=== PATIENT | male | born 1965 | race Caucasian/White ===

== ENCOUNTER 2021-09-23 11:24 | Inpatient (IN) ==
[2021-09-23] MEDS ORDERED: Magnesium Sulfate 2 gm BAG 2 GM/50 ML BAG IVPB ONE (11:33)
[2021-09-23] MEDS ORDERED: Magnesium Sulfate 2 gm BAG 2 GM/50 ML BAG ONE (11:34)
[2021-09-23] MEDS ORDERED: Furosemide 20 mg/2 ml IV VIAL IV SLOW PU ONE (11:40)
[2021-09-23] MEDS ORDERED: Nitro 2% OINT (Nitroglycerin) 1 INCH/PAK TOPICAL ONE (11:40)
[2021-09-23] MEDS ORDERED: Albuterol 2.5mg/3 ml (0.083%) NEB.SOLN INH ONE ×4 (11:45→12:58)
[2021-09-23 11:49] LABS: PO2 Arterial 226 mmHg (80-100)
[2021-09-23 11:52] LABS: PCO2 Arterial 117 mmHg (35-45)
[2021-09-23] MEDS ORDERED: Succinylcholine 200 mg VIAL 20 mg/ml 10 ml VIAL (200 mg) ONE (12:05)
[2021-09-23] MEDS ORDERED: Etomidate 40 mg/20 ml (2 MG/ML) 20 ml VIAL (40 mg) ONE (12:05)
[2021-09-23] MEDS ORDERED: Rocuronium 50 mg VIAL 10 mg/ml 5 ml VIAL (50 mg) ONE (12:05)
[2021-09-23 12:09] LABS: Urine Appearance Cloudy; Urine Bilirubin Negative (Negative); Urine Blood 2+ (Negative); Urine Color Yellow; Urine Glucose Negative (Negative); Urine Ketones Trace (Negative); Urine Nitrite Negative (Negative); Urine Protein 1+(30 mg/dL) (Negative); Urine Specific Gravity 1.016 (1.002-1.030); Urine Urobilinogen Negative (Negative)
[2021-09-23 12:12] LABS: Urine Bacteria Absent (Absent); Urine Red Blood Cell 2+(6-10/hpf) (Absent); Urine White Blood Cell Trace(0-5/hpf) (Absent)
[2021-09-23 12:12] LABS: ABS Lymphocytes 0.4 10^3/ul (1.0-4.8); ABS Monocytes 0.5 10^3/ul (0-0.8); ABS Neutrophils 6.3 10^3/ul (1.5-7.7); Eosinophil % 0.1 %; Hematocrit 39 % (42-52); Hemoglobin 13.1 g/dL (14.0-18.0); Mean Corpuscular HGB Conc 33 g/dL (31-36); Mean Corpuscular Hemoglobin 31 pg (27-31); Mean Corpuscular Volume 93 fL (80-94); Mean Platelet Volume 6.5 fL (7.4-10.4); Nucleated Red Blood Cells % 0.1; Platelet Count 504 10^3/uL (150-450); Red Blood Count 4.23 10^6 /uL (4.18-5.48); Red Cell Distribution Width 14 % (10-15); White Blood Count 7.2 10^3/uL (3.5-10.8)
[2021-09-23] MEDS ORDERED: Norepinephrine 16MCG/ML BAGD5W 4,000 MCG/250 ML BAG IV ONE (12:26)
[2021-09-23] MEDS ORDERED: Albuterol/Ipratropium NEB.SOL (2.5/0.5 MG) 3 ML NEB.SOLN ONE (12:30)
[2021-09-23] MEDS: Norepinephrine 16MCG/ML BAGD5W 4,000 MCG/250 ML BAG IV SCH ×2 (12:30→19:55)
[2021-09-23] MEDS ORDERED: methylPREDNISolone 125 mg 2 ML VIAL ONE (12:31)
[2021-09-23 12:37] LABS: Albumin 4.3 g/dL (3.2-5.2); Albumin/Globulin Ratio 1.7 (1-3); Calcium 9.5 mg/dL (8.6-10.3); Globulin 2.6 g/dL (2-4); Magnesium 2.1 mg/dL (1.9-2.7); Potassium 4.9 mmol/L (3.5-5.0); Total Bilirubin 0.3 mg/dL (0.2-1.0); Total Protein 6.9 g/dL (6.4-8.9); eGFR CKD-EPI 118.3 (>60)
[2021-09-23] MEDS ORDERED: Propofol 10 mg/ml 100 ML BTL 100 ML ONE (12:41)
[2021-09-23] MEDS: Propofol 10 mg/ml 100 ML BTL 100 ML IV SCH ×2 (12:54→21:19)
[2021-09-23] MEDS ORDERED: Midazolam 2 mg/2 ml VIAL 1 mg/ml 2 ml VIAL (2 mg) IV SLOW PU ONE ×2 (12:57)
[2021-09-23] MEDS ORDERED: Propofol 10 mg/ml 100 ML BTL 100 ML IV ONE (12:58)
[2021-09-23] MEDS ORDERED: cefTRIAXone 1 gm/50 mL D5W 1 GM/50 ML BAG IV SCH (13:15)
[2021-09-23] MEDS ORDERED: Cisatracurium 100 MG in NS 0.9% 250 ml 200 ML IV SCH (13:15)
[2021-09-23] MEDS ORDERED: Iohexol 350 (CONTRAST) 500 ML MDV IV ONE (13:26)
[2021-09-23] MEDS ORDERED: methylPREDNISolone 125 mg 2 ML VIAL IV ONE (13:49)
[2021-09-23] MEDS ORDERED: NS 0.9% 1000 ml BAG 1,000 ML IV ONE (13:49)
[2021-09-23] MEDS ORDERED: Albuterol/Ipratropium NEB.SOL (2.5/0.5 MG) 3 ML NEB.SOLN INH SCH (14:00)
[2021-09-23] MEDS ORDERED: methylPREDNISolone SOD 40 mg/ml 1 ml VIAL IV SCH (14:00)
[2021-09-23 15:02] LABS: High Sensitivity Troponin 1 Hr 38 pg/mL (<20)
[2021-09-23] MEDS: Azithromycin 500 mg/250 ml NS 500 MG/250 ML BAG IVPB SCH (15:13)
[2021-09-23] MEDS: Chlorhexidine MOUTHWASH 0.12% 15 ML UDC SWISH SPIT SCH ×3 (15:38→21:16)
[2021-09-23] MEDS: Pantoprazole VIAL 40 MG VIAL IV SCH (15:38)
[2021-09-23 15:50] LABS: PO2 Arterial 130 mmHg (80-100)
[2021-09-23 15:55] LABS: PCO2 Arterial 88 mmHg (35-45)
[2021-09-23] MEDS: methylPREDNISolone SOD 40 mg/ml 1 ml VIAL IV SCH (17:48)
[2021-09-23 18:06] LABS: PO2 Arterial 93 mmHg (80-100)
[2021-09-23 18:12] LABS: PCO2 Arterial 82 mmHg (35-45)
[2021-09-23] MEDS: Albuterol/Ipratropium NEB.SOL (2.5/0.5 MG) 3 ML NEB.SOLN INH SCH (18:31)
[2021-09-23] MEDS: Heparin 5000 UNITS/ML 1 mL VIAL SUBCUT SCH (21:15)
[2021-09-23] MEDS: fentaNYL 100 mcg/2 ml 50 MCG/ML VIAL IV SLOW PU PRN (22:04)
[2021-09-23] MEDS ORDERED: Acetaminophen IV 1 GM/100ML 100 ML IV PRN (22:19)
[2021-09-24] MEDS: Albuterol/Ipratropium NEB.SOL (2.5/0.5 MG) 3 ML NEB.SOLN INH SCH ×2 (00:17→07:27)
[2021-09-24] MEDS: methylPREDNISolone SOD 40 mg/ml 1 ml VIAL IV SCH ×3 (01:06→20:30)
[2021-09-24] MEDS: Chlorhexidine MOUTHWASH 0.12% 15 ML UDC SWISH SPIT SCH ×6 (02:02→20:30)
[2021-09-24] MEDS: Propofol 10 mg/ml 100 ML BTL 100 ML IV SCH ×3 (04:15→21:06)
[2021-09-24] MEDS: Norepinephrine 16MCG/ML BAGD5W 4,000 MCG/250 ML BAG IV SCH (04:15)
[2021-09-24 04:42] LABS: ABS Lymphocytes 0.3 10^3/ul (1.0-4.8); ABS Monocytes 0.5 10^3/ul (0-0.8); ABS Neutrophils 8.9 10^3/ul (1.5-7.7); Hematocrit 37 % (42-52); Hemoglobin 12.3 g/dL (14.0-18.0); Lymphocyte % 3.1 %; Mean Corpuscular HGB Conc 33 g/dL (31-36); Mean Corpuscular Hemoglobin 30 pg (27-31); Mean Corpuscular Volume 92 fL (80-94); Mean Platelet Volume 6.6 fL (7.4-10.4); Platelet Count 464 10^3/uL (150-450); Red Blood Count 4.06 10^6 /uL (4.18-5.48); Red Cell Distribution Width 14 % (10-15); White Blood Count 9.6 10^3/uL (3.5-10.8)
[2021-09-24] MEDS ORDERED: cefTRIAXone 1 gm/50 mL D5W 1 GM/50 ML BAG IV SCH (05:00)
[2021-09-24 05:02] LABS: Calcium 9.3 mg/dL (8.6-10.3); Potassium 4.6 mmol/L (3.5-5.0); eGFR CKD-EPI 122.8 (>60)
[2021-09-24] MEDS ORDERED: Lactated Ringers 500 ml BAG 500 ML IV ONE (07:46)
[2021-09-24] MEDS ORDERED: PHENYLEPHRINE DRIP IVPREMIX 50 MG/250 ML BAG IV SCH (08:00)
[2021-09-24] MEDS ORDERED: Vasopressin 100 UNITS in D5W 250 ml BAG 245 ML IV SCH (08:00)
[2021-09-24] MEDS: Heparin 5000 UNITS/ML 1 mL VIAL SUBCUT SCH ×2 (08:12→20:30)
[2021-09-24] MEDS ORDERED: Norepinephrine 16MCG/ML BAGD5W 4,000 MCG/250 ML BAG IV SCH (10:00)
[2021-09-24 11:20] LABS: PCO2 Arterial 70 mmHg (35-45); PO2 Arterial 83 mmHg (80-100)
[2021-09-24 11:34] LABS: Phosphorus 4.3 mg/dL (2.5-5.0)
[2021-09-24] MEDS: cefTRIAXone 1 gm/50 mL D5W 1 GM/50 ML BAG IV SCH (13:19)
[2021-09-24] MEDS: Azithromycin 500 mg/250 ml NS 500 MG/250 ML BAG IVPB SCH (14:33)
[2021-09-24] MEDS: Pantoprazole VIAL 40 MG VIAL IV SCH (14:33)
[2021-09-25] MEDS: Chlorhexidine MOUTHWASH 0.12% 15 ML UDC SWISH SPIT SCH ×3 (01:03→10:26)
[2021-09-25] MEDS: fentaNYL 100 mcg/2 ml 50 MCG/ML VIAL IV SLOW PU PRN (01:30)
[2021-09-25 03:28] LABS: Hematocrit 33 % (42-52); Mean Corpuscular HGB Conc 33 g/dL (31-36); Mean Corpuscular Hemoglobin 30 pg (27-31); Mean Corpuscular Volume 92 fL (80-94); Mean Platelet Volume 6.4 fL (7.4-10.4); Platelet Count 376 10^3/uL (150-450); Red Blood Count 3.62 10^6 /uL (4.18-5.48); Red Cell Distribution Width 14 % (10-15); White Blood Count 16.9 10^3/uL (3.5-10.8)
[2021-09-25 03:30] LABS: Urine Appearance Turbid; Urine Bilirubin Negative (Negative); Urine Blood 2+ (Negative); Urine Color Yellow; Urine Glucose Negative (Negative); Urine Ketones 1+ (Negative); Urine Nitrite Negative (Negative); Urine Protein 2+(100 mg/dL) (Negative); Urine Specific Gravity 1.028 (1.002-1.030); Urine Urobilinogen Negative (Negative)
[2021-09-25 03:48] LABS: Urine Bacteria Absent (Absent); Urine Red Blood Cell 3+(>10/hpf) (Absent); Urine Squamous Epithelial Cell Present (Absent); Urine White Blood Cell 3+(>20/hpf) (Absent)
[2021-09-25 04:15] LABS: Basophilic Stippling 1+; RBC Morphology Normal (Normal)
[2021-09-25 04:16] LABS: ABS Lymphocytes 0.3 10^3/ul (1.0-4.8); ABS Monocytes 0.9 10^3/ul (0-0.8); ABS Neutrophils 15.7 10^3/ul (1.5-7.7); Eosinophil % 0.1 %; Lymphocyte % 1.5 %
[2021-09-25 04:20] LABS: Calcium 9.3 mg/dL (8.6-10.3); Magnesium 2.3 mg/dL (1.9-2.7); Potassium 4.7 mmol/L (3.5-5.0); eGFR CKD-EPI 124.5 (>60)
[2021-09-25] MEDS: Propofol 10 mg/ml 100 ML BTL 100 ML IV SCH (06:19)
[2021-09-25] MEDS: methylPREDNISolone SOD 40 mg/ml 1 ml VIAL IV SCH (07:52)
[2021-09-25] MEDS: Heparin 5000 UNITS/ML 1 mL VIAL SUBCUT SCH ×2 (07:52→20:13)
[2021-09-25 08:45] LABS: PO2 Arterial 90 mmHg (80-100)
[2021-09-25 08:48] LABS: PCO2 Arterial 78 mmHg (35-45)
[2021-09-25] MEDS: Pantoprazole VIAL 40 MG VIAL IV SCH (12:46)
[2021-09-25] MEDS: cefTRIAXone 1 gm/50 mL D5W 1 GM/50 ML BAG IV SCH (12:46)
[2021-09-25 13:57] LABS: PCO2 Arterial 67 mmHg (35-45); PO2 Arterial 93 mmHg (80-100)
[2021-09-25] MEDS: Azithromycin 500 mg/250 ml NS 500 MG/250 ML BAG IVPB SCH (14:40)
[2021-09-26 04:49] LABS: ABS Lymphocytes 0.8 10^3/ul (1.0-4.8); ABS Monocytes 0.9 10^3/ul (0-0.8); Eosinophil % 0.2 %; Hematocrit 31 % (42-52); Hemoglobin 10.1 g/dL (14.0-18.0); Lymphocyte % 6.9 %; Mean Corpuscular HGB Conc 33 g/dL (31-36); Mean Corpuscular Hemoglobin 30 pg (27-31); Mean Corpuscular Volume 93 fL (80-94); Mean Platelet Volume 6.6 fL (7.4-10.4); Platelet Count 302 10^3/uL (150-450); Red Blood Count 3.33 10^6 /uL (4.18-5.48); Red Cell Distribution Width 14 % (10-15); White Blood Count 11.8 10^3/uL (3.5-10.8)
[2021-09-26 05:13] LABS: Blood Urea Nitrogen 29 mg/dL (6-24); Calcium 8.8 mg/dL (8.6-10.3); Chloride 91 mmol/L (101-111); Glucose 85 mg/dL (70-100); Potassium 4.4 mmol/L (3.5-5.0); Sodium 135 mmol/L (135-145); eGFR CKD-EPI 138.8 (>60)
[2021-09-26 05:35] LABS: Anion Gap 2 mmol/L (2-11); CO2 Carbon Dioxide 42 mmol/L (22-32)
[2021-09-26] MEDS ORDERED: Multivitamins/Minerals TAB PO ONE (09:09)
[2021-09-26] MEDS: Heparin 5000 UNITS/ML 1 mL VIAL SUBCUT SCH ×2 (09:38→20:11)
[2021-09-26] MEDS ORDERED: Azithromycin 500 mg/250 ml NS 500 MG/250 ML BAG IVPB SCH (10:00)
[2021-09-26] MEDS ORDERED: Nicotine Lozenge mini 2 MG LOZNG.MINI MT PRN (12:21)
[2021-09-26] MEDS: cefTRIAXone 1 gm/50 mL D5W 1 GM/50 ML BAG IV SCH (12:29)
[2021-09-26] MEDS: Pantoprazole VIAL 40 MG VIAL IV SCH (16:59)
[2021-09-26] MEDS: Budesonide NEB 0.5 MG/2 ML NEB.SOLN INH SCH (19:21)
[2021-09-27 05:39] LABS: ABS Eosinophils 0.1 10^3/ul (0-0.6); ABS Lymphocytes 0.9 10^3/ul (1.0-4.8); ABS Monocytes 0.9 10^3/ul (0-0.8); ABS Neutrophils 7.6 10^3/ul (1.5-7.7); Eosinophil % 1.1 %; Hematocrit 32 % (42-52); Hemoglobin 10.6 g/dL (14.0-18.0); Lymphocyte % 9.2 %; Mean Corpuscular HGB Conc 34 g/dL (31-36); Mean Corpuscular Hemoglobin 31 pg (27-31); Mean Corpuscular Volume 92 fL (80-94); Mean Platelet Volume 6.4 fL (7.4-10.4); Platelet Count 317 10^3/uL (150-450); Red Blood Count 3.44 10^6 /uL (4.18-5.48); Red Cell Distribution Width 14 % (10-15); White Blood Count 9.5 10^3/uL (3.5-10.8)
[2021-09-27 06:17] LABS: Blood Urea Nitrogen 15 mg/dL (6-24); Calcium 8.7 mg/dL (8.6-10.3); Chloride 89 mmol/L (101-111); Glucose 95 mg/dL (70-100); Potassium 4.7 mmol/L (3.5-5.0); Sodium 133 mmol/L (135-145); eGFR CKD-EPI 128.2 (>60)
[2021-09-27 06:28] LABS: CO2 Carbon Dioxide 45 mmol/L (22-32)
[2021-09-27] MEDS: Heparin 5000 UNITS/ML 1 mL VIAL SUBCUT SCH ×2 (08:05→20:51)
[2021-09-27] MEDS: Budesonide NEB 0.5 MG/2 ML NEB.SOLN INH SCH ×2 (08:31→20:12)
[2021-09-27] MEDS: cefTRIAXone 1 gm/50 mL D5W 1 GM/50 ML BAG IV SCH (15:09)
[2021-09-27] MEDS: Pantoprazole VIAL 40 MG VIAL IV SCH (15:09)
[2021-09-28 06:21] LABS: ABS Eosinophils 0.1 10^3/ul (0-0.6); ABS Lymphocytes 0.6 10^3/ul (1.0-4.8); ABS Monocytes 0.8 10^3/ul (0-0.8); ABS Neutrophils 5.6 10^3/ul (1.5-7.7); Eosinophil % 1.4 %; Hematocrit 34 % (42-52); Hemoglobin 11.2 g/dL (14.0-18.0); Lymphocyte % 9.1 %; Mean Corpuscular HGB Conc 33 g/dL (31-36); Mean Corpuscular Hemoglobin 31 pg (27-31); Mean Corpuscular Volume 93 fL (80-94); Mean Platelet Volume 6.7 fL (7.4-10.4); Platelet Count 331 10^3/uL (150-450); Red Blood Count 3.65 10^6 /uL (4.18-5.48); Red Cell Distribution Width 14 % (10-15); White Blood Count 7.2 10^3/uL (3.5-10.8)
[2021-09-28] MEDS: Budesonide NEB 0.5 MG/2 ML NEB.SOLN INH SCH (07:35)
[2021-09-28 07:56] LABS: Calcium 8.9 mg/dL (8.6-10.3); Potassium 4.9 mmol/L (3.5-5.0)
[2021-09-28 08:01] LABS: eGFR CKD-EPI 132.5 (>60)
[2021-09-28] MEDS: Heparin 5000 UNITS/ML 1 mL VIAL SUBCUT SCH ×2 (08:14→20:17)
[2021-09-28] MEDS: cefTRIAXone 1 gm/50 mL D5W 1 GM/50 ML BAG IV SCH (12:53)
[2021-09-28] MEDS: Pantoprazole VIAL 40 MG VIAL IV SCH (12:53)
[2021-09-28] MEDS ORDERED: Budesonide NEB 0.5 MG/2 ML NEB.SOLN INH PRN (13:49)
[2021-09-29 06:45] LABS: ABS Eosinophils 0.2 10^3/ul (0-0.6); ABS Lymphocytes 0.7 10^3/ul (1.0-4.8); ABS Monocytes 0.7 10^3/ul (0-0.8); ABS Neutrophils 5.3 10^3/ul (1.5-7.7); Eosinophil % 2.7 %; Hematocrit 33 % (42-52); Hemoglobin 10.9 g/dL (14.0-18.0); Lymphocyte % 10.1 %; Mean Corpuscular HGB Conc 33 g/dL (31-36); Mean Corpuscular Hemoglobin 31 pg (27-31); Mean Corpuscular Volume 93 fL (80-94); Mean Platelet Volume 6.8 fL (7.4-10.4); Nucleated Red Blood Cells % 0.1; Platelet Count 358 10^3/uL (150-450); Red Blood Count 3.51 10^6 /uL (4.18-5.48); Red Cell Distribution Width 14 % (10-15); White Blood Count 6.9 10^3/uL (3.5-10.8)
[2021-09-29 07:02] LABS: Blood Urea Nitrogen 12 mg/dL (6-24); Calcium 8.8 mg/dL (8.6-10.3); Chloride 85 mmol/L (101-111); Glucose 92 mg/dL (70-100); Magnesium 1.9 mg/dL (1.9-2.7); Phosphorus 3.2 mg/dL (2.5-5.0); Potassium 4.7 mmol/L (3.5-5.0); Sodium 131 mmol/L (135-145); eGFR CKD-EPI 134.9 (>60)
[2021-09-29] MEDS ORDERED: Magnesium Sulfate 2 gm BAG 2 GM/50 ML BAG IVPB ONE (07:20)
[2021-09-29 08:58] LABS: CO2 Carbon Dioxide 46 mmol/L (22-32)
[2021-09-29] MEDS: Heparin 5000 UNITS/ML 1 mL VIAL SUBCUT SCH ×2 (09:04→20:23)
[2021-09-30 06:13] LABS: Blood Urea Nitrogen 13 mg/dL (6-24); Calcium 8.5 mg/dL (8.6-10.3); Chloride 86 mmol/L (101-111); Glucose 107 mg/dL (70-100); Magnesium 2.1 mg/dL (1.9-2.7); Potassium 4.8 mmol/L (3.5-5.0); Sodium 130 mmol/L (135-145); eGFR CKD-EPI 138.8 (>60)
[2021-09-30 06:28] LABS: ABS Eosinophils 0.1 10^3/ul (0-0.6); ABS Lymphocytes 0.7 10^3/ul (1.0-4.8); ABS Monocytes 0.9 10^3/ul (0-0.8); ABS Neutrophils 7.3 10^3/ul (1.5-7.7); Eosinophil % 1.3 %; Hematocrit 34 % (42-52); Hemoglobin 11.4 g/dL (14.0-18.0); Lymphocyte % 7.4 %; Mean Corpuscular HGB Conc 33 g/dL (31-36); Mean Corpuscular Hemoglobin 31 pg (27-31); Mean Corpuscular Volume 94 fL (80-94); Mean Platelet Volume 6.7 fL (7.4-10.4); Platelet Count 378 10^3/uL (150-450); Red Blood Count 3.66 10^6 /uL (4.18-5.48); Red Cell Distribution Width 14 % (10-15)
[2021-09-30 06:36] LABS: CO2 Carbon Dioxide 44 mmol/L (22-32)
[2021-09-30] MEDS: Heparin 5000 UNITS/ML 1 mL VIAL SUBCUT SCH ×2 (08:49→20:32)
[2021-09-30] MEDS: SPIRIVA Respimat (tiotropium) 2.5 mcg/inh Inhaler INH SCH (09:02)
[2021-10-01 06:09] LABS: ABS Basophils 0.1 10^3/ul (0-0.2); ABS Eosinophils 0.1 10^3/ul (0-0.6); ABS Monocytes 1.1 10^3/ul (0-0.8); ABS Neutrophils 7.6 10^3/ul (1.5-7.7); Eosinophil % 1.3 %; Hematocrit 34 % (42-52); Hemoglobin 11.2 g/dL (14.0-18.0); Lymphocyte % 9.8 %; Mean Corpuscular HGB Conc 33 g/dL (31-36); Mean Corpuscular Hemoglobin 31 pg (27-31); Mean Corpuscular Volume 92 fL (80-94); Mean Platelet Volume 6.5 fL (7.4-10.4); Platelet Count 361 10^3/uL (150-450); Red Blood Count 3.66 10^6 /uL (4.18-5.48); Red Cell Distribution Width 14 % (10-15); White Blood Count 9.8 10^3/uL (3.5-10.8)
[2021-10-01 06:50] LABS: Blood Urea Nitrogen 15 mg/dL (6-24); Calcium 8.8 mg/dL (8.6-10.3); Chloride 83 mmol/L (101-111); Glucose 80 mg/dL (70-100); Sodium 130 mmol/L (135-145); eGFR CKD-EPI 138.8 (>60)
[2021-10-01 07:10] LABS: Potassium 5.3 mmol/L (3.5-5.0)
[2021-10-01 07:13] LABS: Anion Gap 3 mmol/L (2-11); CO2 Carbon Dioxide 44 mmol/L (22-32)
[2021-10-01] MEDS: Heparin 5000 UNITS/ML 1 mL VIAL SUBCUT SCH ×2 (09:19→21:04)
[2021-10-01] MEDS: SPIRIVA Respimat (tiotropium) 2.5 mcg/inh Inhaler INH SCH (09:29)
[2021-10-01] MEDS ORDERED: SODIUM ZIRCONIUM CYCLOSILICATE 10 GM PACKET PO ONE (14:13)
[2021-10-02 06:04] LABS: PCO2 Arterial 79 mmHg (35-45)
[2021-10-02 06:06] LABS: PO2 Arterial 96 mmHg (80-100)
[2021-10-02 06:50] LABS: Calcium 8.4 mg/dL (8.6-10.3); Potassium 4.9 mmol/L (3.5-5.0); eGFR CKD-EPI 138.8 (>60)
[2021-10-02] MEDS: SPIRIVA Respimat (tiotropium) 2.5 mcg/inh Inhaler INH SCH (07:37)
[2021-10-02] MEDS: Heparin 5000 UNITS/ML 1 mL VIAL SUBCUT SCH (09:05)
[2021-10-02 14:18] VITALS: BP 133/61
== END 2021-10-02 14:42 | disposition home or self-care (01) | DRG 208 ==
LOC: ED 11:24 → ICU 12:49 → SUATTDRO 12:49 → ICU 14:05 → MEDTELE 09-26 15:41
PROVIDERS: ADMIT Internal Medicine; ATTEND Internal Medicine

== ENCOUNTER 2023-07-13 18:23 | Inpatient (IN) ==
[2023-07-13] MEDS ORDERED: Rocuronium 50 mg VIAL 10 mg/ml 5 ml VIAL (50 mg) ONE (18:30)
[2023-07-13] MEDS ORDERED: Succinylcholine 200 mg VIAL 20 mg/ml 10 ml VIAL (200 mg) ONE (18:30)
[2023-07-13] MEDS ORDERED: Naloxone 4 mg VIAL 0.4 MG/ML 10 ml VIAL (4 mg) ONE (18:32)
[2023-07-13] MEDS: Naloxone 0.4 mg VIAL 0.4 mg/ml 1 ml VIAL IV PUSH ONE (18:33)
[2023-07-13] MEDS: Etomidate 20 mg/10 ml 2 MG/ML 10 ml VIAL IV ONE (18:41)
[2023-07-13] MEDS: Succinylcholine 200 mg VIAL 20 mg/ml 10 ml VIAL (200 mg) IV ONE (18:42)
[2023-07-13] MEDS ORDERED: Midazolam 5 mg/ml concentrated 5 mg/ml 1 ml VIAL ONE (18:52)
[2023-07-13] MEDS: Midazolam 2 mg/2 ml VIAL 1 mg/ml 2 ml VIAL (2 mg) IV SLOW PU ONE (18:56)
[2023-07-13 19:02] LABS: Hematocrit 33.6 % (38-53); Hemoglobin 10.8 g/dL (13.2-16.3); Mean Corpuscular Hemoglobin 29.9 pg (27-33); Mean Corpuscular Hgb Conc 32.2 g/dL (31-36); Mean Corpuscular Volume 92.8 fL (80-97); Mean Platelet Volume 6.6 fL (7.5-11.2); Platelet Count 527 10^3/uL (150-450); Red Blood Count 3.62 10^6/uL (4.06-5.63); Red Cell Distribution Width 13.8 % (12-17); White Blood Count 9.4 10^3/uL (3.6-10.2)
[2023-07-13] MEDS: Midazolam PREMIXBAG 1 MG/ML NS 100 ML IV SCH (19:04)
[2023-07-13 19:12] LABS: PO2 Arterial 265 mmHg (80-100); Resp Rate 15
[2023-07-13 19:15] LABS: PCO2 Arterial > 100 mmHg (35-45)
[2023-07-13] MEDS: methylPREDNISolone SOD SUCC 125 mg 2 ML VIAL IV ONE (19:22)
[2023-07-13] MEDS ORDERED: Propofol 10 mg/ml 100 ML BTL 1,000 MG/100 ML BTL ONE (19:23)
[2023-07-13 19:26] LABS: High Sens Troponin Baseline 6 pg/mL (<20)
[2023-07-13 19:29] LABS: ALT 8 U/L (7-52); AST 10 U/L (13-39); Albumin 3.8 g/dL (3.2-5.2); Alkaline Phosphatase 130 U/L (35-149); Blood Urea Nitrogen 19 mg/dL (6-24); C Reactive Protein 219.59 mg/L (<8.01); Calcium 9.8 mg/dL (8.6-10.3); Chloride 90 mmol/L (101-111); Creatinine, Serum 0.31 mg/dL (0.67-1.17); Glucose 115 mg/dL (70-100); Potassium 4.4 mmol/L (3.5-5.0); Sodium 142 mmol/L (135-145); Total Bilirubin 0.4 mg/dL (0.2-1.0); eGFR CKD-EPI 135.7 (>60)
[2023-07-13 19:30] LABS: Albumin/Globulin Ratio 1.2 (1-3); Globulin 3.3 g/dL (2-4); Total Protein 7.1 g/dL (6.4-8.9)
[2023-07-13 19:33] LABS: ABS Eosinophils 0.1 10^3/uL (0.0-0.5); ABS Lymphocytes 0.6 10^3/uL (1.0-4.8); ABS Neutrophils 6.7 10^3/uL (1.5-7.6); ABS Nucleated RBC 0.01 10^3/ul; Eosinophil % 0.7 %; Lymphocyte % 6.4 %; Nucleated Red Blood Cells % 0.1 %/100WBC (0.0-0.8)
[2023-07-13 19:47] LABS: Urine Appearance Clear; Urine Bilirubin Negative (Negative); Urine Blood 1+ (Negative); Urine Color Yellow; Urine Glucose Negative (Negative); Urine Ketones 1+ (Negative); Urine Nitrite Negative (Negative); Urine Protein 2+(100 mg/dL) (Negative); Urine Specific Gravity 1.021 (1.002-1.030); Urine Urobilinogen Positive (Negative)
[2023-07-13 19:48] LABS: CO2 Carbon Dioxide > 45 mmol/L (22-32)
[2023-07-13 19:55] LABS: Urine Bacteria Absent (Absent); Urine Red Blood Cell 3+(>10/hpf) (Absent); Urine White Blood Cell Trace(0-5/hpf) (Absent)
[2023-07-13 19:57] LABS: Activated Partial Thrombo Time 38.1 seconds (26.0-38.0); INR 1.14 (0.83-1.13)
[2023-07-13] MEDS ORDERED: Phenylephrine 40 mcg/mL 10mL (400mcg) SYRINGE IV PUSH PRN (20:08)
[2023-07-13] MEDS: Albuterol/Ipratropium NEB.SOL (2.5/0.5 MG) 3 ML NEB.SOLN INH ONE ×3 (20:25→21:37)
[2023-07-13] MEDS: Norepinephrine 4 MG/250mL D5W 4,000 MCG/250 ML BAG IV SCH (20:35)
[2023-07-13] MEDS: Propofol 10 mg/ml 100 ML BTL 1,000 MG/100 ML BTL IV SCH (20:35)
[2023-07-13] MEDS: Rocuronium 50 mg VIAL 10 mg/ml 5 ml VIAL (50 mg) IV ONE (21:28)
[2023-07-13] MEDS: Ketamine HCL 50 mg/ml 10 ml VIAL (500 MG) IV ONE (22:00)
[2023-07-13] MEDS: Ketamine INFUS(restricted) NS 500 MG/500 ML BAG IV SCH (22:05)
[2023-07-13] MEDS: Norepinephrine 4 MG/250mL D5W 4,000 MCG/250 ML BAG IV ONE (22:35)
[2023-07-13] MEDS: cefTRIAXone 1 gm/50 mL D5W 1 GM/50 ML BAG IV ONE (23:16)
[2023-07-13] MEDS: Azithromycin 500 mg/250 ml NS 500 MG/250 ML BAG IVPB ONE (23:16)
[2023-07-13] MEDS: Phenylephrine 40 mcg/mL 10mL (400mcg) SYRINGE ONE (23:25)
[2023-07-13] MEDS: Rocuronium 50 mg VIAL 10 mg/ml 5 ml VIAL (50 mg) ONE (23:27)
[2023-07-13 23:53] LABS: High Sensitivity Troponin 1 Hr 8 pg/mL (<20)
[2023-07-14 00:07] LABS: PCO2 Arterial 53 mmHg (35-45); PO2 Arterial 101 mmHg (80-100)
[2023-07-14] MEDS: Pantoprazole VIAL 40 MG VIAL IV SCH (00:50)
[2023-07-14] MEDS: Enoxaparin 40 MG/0.4 ML SYR SUBCUT SCH (00:51)
[2023-07-14] MEDS: methylPREDNISolone SOD SUCC 125 mg 2 ML VIAL IV SCH (03:31)
[2023-07-14 05:53] LABS: ABS Lymphocytes 0.4 10^3/uL (1.0-4.8); ABS Monocytes 0.7 10^3/uL (0.0-1.1); ABS Neutrophils 6.8 10^3/uL (1.5-7.6); Hemoglobin 10.9 g/dL (13.2-16.3); Lymphocyte % 5.6 %; Mean Corpuscular Hemoglobin 29.6 pg (27-33); Mean Corpuscular Hgb Conc 32.2 g/dL (31-36); Mean Corpuscular Volume 91.9 fL (80-97); Mean Platelet Volume 6.9 fL (7.5-11.2); Nucleated Red Blood Cells % 0.1 %/100WBC (0.0-0.8); Platelet Count 520 10^3/uL (150-450); Red Blood Count 3.69 10^6/uL (4.06-5.63); Red Cell Distribution Width 13.6 % (12-17)
[2023-07-14] MEDS: Albuterol/Ipratropium NEB.SOL (2.5/0.5 MG) 3 ML NEB.SOLN INH SCH ×3 (06:06→11:52)
[2023-07-14 06:08] LABS: Calcium 8.8 mg/dL (8.6-10.3); Creatinine, Serum 0.43 mg/dL (0.67-1.17); Magnesium 1.9 mg/dL (1.9-2.7); Phosphorus 2.8 mg/dL (2.5-5.0)
[2023-07-14] MEDS: Chlorhexidine MOUTHWASH 0.12% 15 ML UDC TOPICAL SCH (06:28)
[2023-07-14] MEDS: Lactated Ringers 1000 ml BAG 1,000 ML IV ONE (06:28)
[2023-07-14] MEDS: Albuterol 2.5mg/3 ml (0.083%) NEB.SOLN INH PRN (07:27)
[2023-07-14] MEDS: Iodixanol (CONTRAST) 320 MG/ML 100 ML SDV IV ONE (07:41)
[2023-07-14 10:10] LABS: Resp Rate 12
[2023-07-14 10:11] LABS: PO2 Arterial 200 mmHg (80-100)
[2023-07-14 10:13] LABS: PCO2 Arterial 72 mmHg (35-45)
[2023-07-14] MEDS ORDERED: Sulfur Hexaflouride MICROSPHR 25 MG VIAL ONE (11:11)
[2023-07-14] MEDS: acetaZOLAMIDE IV 500 MG in NS 0.9% 50 ML 50 ML IVPB SCH (11:34)
[2023-07-14] MEDS: Acetylcysteine INH SOL (RT) 200 MG/ML 4 ML VIAL INH ONE (11:53)
[2023-07-14] MEDS: Lactated Ringers 1000 ml BAG 1,000 ML IV SCH (14:25)
[2023-07-14] MEDS: Albuterol/Ipratropium NEB.SOL (2.5/0.5 MG) 3 ML NEB.SOLN ONE (23:27)
[2023-07-14] MEDS: cefTRIAXone 1 gm/50 mL D5W 1 GM/50 ML BAG IV SCH (23:55)
[2023-07-15] MEDS: Azithromycin 500 mg/250 ml NS 500 MG/250 ML BAG IVPB SCH (00:35)
[2023-07-15] MEDS: fentaNYL 100 mcg/2 ml 50 MCG/ML VIAL IV SLOW PU ONE (01:17)
[2023-07-15] MEDS: fentaNYL INFUSION 50 mcg/mL VL 2,500 MCG/50 ML VIAL IV SCH (01:25)
[2023-07-15 04:49] LABS: ABS Lymphocytes 0.5 10^3/uL (1.0-4.8); ABS Monocytes 0.7 10^3/uL (0.0-1.1); ABS Neutrophils 6.6 10^3/uL (1.5-7.6); ABS Nucleated RBC 0.01 10^3/ul; Hematocrit 27.7 % (38-53); Hemoglobin 9.1 g/dL (13.2-16.3); Lymphocyte % 5.9 %; Mean Corpuscular Hemoglobin 29.7 pg (27-33); Mean Corpuscular Hgb Conc 32.7 g/dL (31-36); Mean Corpuscular Volume 90.7 fL (80-97); Mean Platelet Volume 6.7 fL (7.5-11.2); Nucleated Red Blood Cells % 0.1 %/100WBC (0.0-0.8); Platelet Count 453 10^3/uL (150-450); Red Blood Count 3.05 10^6/uL (4.06-5.63); Red Cell Distribution Width 13.8 % (12-17); White Blood Count 7.8 10^3/uL (3.6-10.2)
[2023-07-15 05:05] LABS: Creatinine, Serum 0.41 mg/dL (0.67-1.17); Potassium 3.4 mmol/L (3.5-5.0)
[2023-07-15 05:06] LABS: Calcium 8.3 mg/dL (8.6-10.3); eGFR CKD-EPI 124.8 (>60)
[2023-07-15] MEDS: Potassium Chloride LIQUID 20 MEQ/15 ML LIQUID PO ONE (08:52)
[2023-07-15 10:21] LABS: PO2 Arterial 129 mmHg (80-100)
[2023-07-15 10:33] LABS: PCO2 Arterial 86 mmHg (35-45)
[2023-07-15] MEDS: Albuterol/Ipratropium NEB.SOL (2.5/0.5 MG) 3 ML NEB.SOLN INH SCH ×3 (11:46→19:50)
[2023-07-15 11:59] LABS: PO2 Arterial 76 mmHg (80-100)
[2023-07-15] MEDS ORDERED: acetaZOLAMIDE IV 250 MG in NS 0.9% 50 ML 50 ML IVPB SCH (12:00)
[2023-07-15 12:05] LABS: PCO2 Arterial 72 mmHg (35-45)
[2023-07-15 16:14] LABS: PCO2 Arterial 66 mmHg (35-45); PO2 Arterial 121 mmHg (80-100)
[2023-07-15] MEDS: methylPREDNISolone SOD SUCC 125 mg 2 ML VIAL IV SCH (21:40)
[2023-07-15] MEDS: Rocuronium 50 mg VIAL 10 mg/ml 5 ml VIAL (50 mg) ONE (22:42)
[2023-07-16 04:38] LABS: ABS Lymphocytes 0.3 10^3/uL (1.0-4.8); ABS Monocytes 0.7 10^3/uL (0.0-1.1); ABS Nucleated RBC 0.01 10^3/ul; Hematocrit 27.9 % (38-53); Hemoglobin 9.3 g/dL (13.2-16.3); Lymphocyte % 3.2 %; Mean Corpuscular Hemoglobin 30.3 pg (27-33); Mean Corpuscular Hgb Conc 33.3 g/dL (31-36); Mean Platelet Volume 6.4 fL (7.5-11.2); Nucleated Red Blood Cells % 0.1 %/100WBC (0.0-0.8); Platelet Count 462 10^3/uL (150-450); Red Blood Count 3.07 10^6/uL (4.06-5.63); Red Cell Distribution Width 14.1 % (12-17)
[2023-07-16 04:56] LABS: Calcium 8.5 mg/dL (8.6-10.3); Creatinine, Serum 0.33 mg/dL (0.67-1.17); Magnesium 2.1 mg/dL (1.9-2.7); Phosphorus 2.6 mg/dL (2.5-5.0); Potassium 3.9 mmol/L (3.5-5.0); eGFR CKD-EPI 133.2 (>60)
[2023-07-16] MEDS: acetaZOLAMIDE IV 250 MG in NS 0.9% 50 ML 50 ML IVPB SCH (08:26)
[2023-07-16 10:49] LABS: PO2 Arterial 113 mmHg (80-100)
[2023-07-16 10:53] LABS: PCO2 Arterial 78 mmHg (35-45)
[2023-07-17 04:53] LABS: Hematocrit 32.2 % (38-53); Hemoglobin 10.5 g/dL (13.2-16.3); Mean Corpuscular Hemoglobin 29.6 pg (27-33); Mean Corpuscular Hgb Conc 32.4 g/dL (31-36); Mean Corpuscular Volume 91.2 fL (80-97); Mean Platelet Volume 6.5 fL (7.5-11.2); Platelet Count 514 10^3/uL (150-450); Red Blood Count 3.54 10^6/uL (4.06-5.63); Red Cell Distribution Width 13.8 % (12-17); White Blood Count 11.4 10^3/uL (3.6-10.2)
[2023-07-17 05:12] LABS: ABS Lymphocytes 0.9 10^3/uL (1.0-4.8); ABS Monocytes 1.6 10^3/uL (0.0-1.1); ABS Neutrophils 8.8 10^3/uL (1.5-7.6); ABS Nucleated RBC 0.01 10^3/ul; Eosinophil % 0.4 %; Lymphocyte % 7.6 %; Nucleated Red Blood Cells % 0.1 %/100WBC (0.0-0.8)
[2023-07-17 05:14] LABS: Anion Gap 1 mmol/L (2-16); Blood Urea Nitrogen 20 mg/dL (6-24); CO2 Carbon Dioxide 40 mmol/L (22-32); Calcium 8.9 mg/dL (8.6-10.3); Chloride 100 mmol/L (101-111); Creatinine, Serum 0.37 mg/dL (0.67-1.17); Glucose 139 mg/dL (70-100); Sodium 141 mmol/L (135-145); eGFR CKD-EPI 128.7 (>60)
[2023-07-17] MEDS: methylPREDNISolone SOD SUCC 125 mg 2 ML VIAL IV SCH (10:37)
[2023-07-17] MEDS: BUDESONIDE/GLYCOPYR/FORMOTEROL MDI (NF) INH SCH (12:40)
[2023-07-17] MEDS: Albuterol/Ipratropium NEB.SOL (2.5/0.5 MG) 3 ML NEB.SOLN INH SCH (12:40)
[2023-07-18 05:55] LABS: Hematocrit 33.2 % (38-53); Hemoglobin 10.8 g/dL (13.2-16.3); Mean Corpuscular Hemoglobin 29.4 pg (27-33); Mean Corpuscular Hgb Conc 32.4 g/dL (31-36); Mean Corpuscular Volume 90.7 fL (80-97); Mean Platelet Volume 6.1 fL (7.5-11.2); Platelet Count 551 10^3/uL (150-450); Red Blood Count 3.66 10^6/uL (4.06-5.63); Red Cell Distribution Width 13.7 % (12-17); White Blood Count 13.3 10^3/uL (3.6-10.2)
[2023-07-18 06:22] LABS: Calcium 8.6 mg/dL (8.6-10.3); Creatinine, Serum 0.41 mg/dL (0.67-1.17); Potassium 4.1 mmol/L (3.5-5.0); eGFR CKD-EPI 124.8 (>60)
[2023-07-18 06:24] LABS: ABS Eosinophils 0.1 10^3/uL (0.0-0.5); ABS Lymphocytes 1.1 10^3/uL (1.0-4.8); ABS Monocytes 1.9 10^3/uL (0.0-1.1); ABS Neutrophils 10.2 10^3/uL (1.5-7.6); ABS Nucleated RBC 0.01 10^3/ul; Eosinophil % 0.5 %; Lymphocyte % 8.4 %; Nucleated Red Blood Cells % 0.1 %/100WBC (0.0-0.8)
[2023-07-18] MEDS: Mometasone/Formoter 200/5 MDI INH SCH (13:18)
[2023-07-19 04:40] LABS: Hematocrit 28.7 % (38-53); Hemoglobin 9.6 g/dL (13.2-16.3); Mean Corpuscular Hemoglobin 30.1 pg (27-33); Mean Corpuscular Hgb Conc 33.4 g/dL (31-36); Mean Corpuscular Volume 90.2 fL (80-97); Mean Platelet Volume 6.1 fL (7.5-11.2); Platelet Count 495 10^3/uL (150-450); Red Blood Count 3.18 10^6/uL (4.06-5.63); Red Cell Distribution Width 13.5 % (12-17); White Blood Count 12.6 10^3/uL (3.6-10.2)
[2023-07-19 04:57] LABS: ABS Basophils 0.1 10^3/uL (0.0-0.1); ABS Eosinophils 0.2 10^3/uL (0.0-0.5); ABS Lymphocytes 1.2 10^3/uL (1.0-4.8); ABS Monocytes 1.5 10^3/uL (0.0-1.1); ABS Neutrophils 9.5 10^3/uL (1.5-7.6); ABS Nucleated RBC 0.01 10^3/ul; Eosinophil % 1.7 %; Lymphocyte % 9.8 %
[2023-07-19 04:59] LABS: Blood Urea Nitrogen 14 mg/dL (6-24); CO2 Carbon Dioxide > 45 mmol/L (22-32); Calcium 8.3 mg/dL (8.6-10.3); Chloride 89 mmol/L (101-111); Creatinine, Serum 0.33 mg/dL (0.67-1.17); Glucose 114 mg/dL (70-100); Potassium 3.9 mmol/L (3.5-5.0); Sodium 141 mmol/L (135-145); eGFR CKD-EPI 133.2 (>60)
[2023-07-19] MEDS: methylPREDNISolone SOD SUCC 125 mg 2 ML VIAL IV SCH (08:28)
[2023-07-20 04:47] LABS: Hematocrit 28.1 % (38-53); Hemoglobin 9.1 g/dL (13.2-16.3); Mean Corpuscular Hemoglobin 29.4 pg (27-33); Mean Corpuscular Hgb Conc 32.5 g/dL (31-36); Mean Corpuscular Volume 90.5 fL (80-97); Platelet Count 477 10^3/uL (150-450); Red Cell Distribution Width 13.4 % (12-17); White Blood Count 13.7 10^3/uL (3.6-10.2)
[2023-07-20 05:21] LABS: Blood Urea Nitrogen 15 mg/dL (6-24); CO2 Carbon Dioxide > 45 mmol/L (22-32); Calcium 8.1 mg/dL (8.6-10.3); Chloride 89 mmol/L (101-111); Creatinine, Serum < 0.30 mg/dL (0.67-1.17); Glucose 115 mg/dL (70-100); Potassium 4.1 mmol/L (3.5-5.0); Sodium 137 mmol/L (135-145); eGFR CKD-EPI 137.1 (>60)
[2023-07-20] MEDS: methylPREDNISolone SOD SUCC 40 mg/ml 1 ml VIAL IV SCH (08:02)
[2023-07-20 17:47] VITALS: BP 122/58
== END 2023-07-20 18:32 | disposition home or self-care (01) | DRG 208 ==
LOC: ED 18:23 → EDHOLD 20:00 → SUATTDRO 20:00 → ICU 20:05
PROVIDERS: ADMIT Internal Medicine Pulmonary Disease; ATTEND Surgery Surgical Critical Care

== ENCOUNTER 2023-10-31 13:33 | Inpatient (IN) ==
[2023-10-31 14:34] LABS: ABS Eosinophils 0.4 10^3/uL (0.0-0.5); ABS Lymphocytes 0.9 10^3/uL (1.0-4.8); ABS Monocytes 1.1 10^3/uL (0.0-1.1); ABS Neutrophils 5.5 10^3/uL (1.5-7.6); Eosinophil % 4.5 %; Hematocrit 33.6 % (38-53); Hemoglobin 10.8 g/dL (13.2-16.3); Lymphocyte % 11.8 %; Mean Corpuscular Hgb Conc 32.1 g/dL (31-36); Mean Corpuscular Volume 93.6 fL (80-97); Mean Platelet Volume 6.5 fL (7.5-11.2); Platelet Count 432 10^3/uL (150-450); Red Blood Count 3.59 10^6/uL (4.06-5.63); Red Cell Distribution Width 14.9 % (12-17); White Blood Count 7.9 10^3/uL (3.6-10.2)
[2023-10-31 14:55] LABS: High Sens Troponin Baseline 7 pg/mL (<20)
[2023-10-31 15:16] LABS: TSH Ultra Thyroid Stim Horm 0.58 mcIU/mL (0.34-5.60)
[2023-10-31 15:43] LABS: ALT 8 U/L (7-52); Albumin 3.6 g/dL (3.2-5.2); Albumin/Globulin Ratio 1.6 (1-3); Alkaline Phosphatase 110 U/L (35-149); Blood Urea Nitrogen 16 mg/dL (6-24); CO2 Carbon Dioxide > 45 mmol/L (22-32); Calcium 9.4 mg/dL (8.6-10.3); Chloride 87 mmol/L (101-111); Creatinine, Serum 0.35 mg/dL (0.67-1.17); Globulin 2.2 g/dL (2-4); Glucose 118 mg/dL (70-100); Magnesium 2.1 mg/dL (1.9-2.7); Sodium 141 mmol/L (135-145); Total Bilirubin 0.3 mg/dL (0.2-1.0); Total Protein 5.8 g/dL (6.4-8.9); eGFR CKD-EPI 130.9 (>60)
[2023-10-31] MEDS: Albuterol/Ipratropium NEB.SOL (2.5/0.5 MG) 3 ML NEB.SOLN INH ONE ×2 (15:56→18:43)
[2023-10-31] MEDS: Iohexol 300 (CONTRAST) 10 ML SDV IV ONE (16:55)
[2023-10-31 17:04] LABS: Urine Appearance Extra Turbid; Urine Bilirubin Negative (Negative); Urine Blood Negative (Negative); Urine Color Yellow; Urine Glucose Negative (Negative); Urine Ketones Negative (Negative); Urine Nitrite Negative (Negative); Urine Protein Trace (Negative); Urine Specific Gravity 1.018 (1.002-1.030); Urine Urobilinogen 3+ (Negative)
[2023-10-31 18:03] LABS: Potassium Redraw 4.5 mmol/L (3.5-5.0)
[2023-10-31] MEDS: Dexamethasone IV 4 MG/ML VIAL 1 ml VIAL IV SLOW PU ONE (18:28)
[2023-10-31 20:25] LABS: PCO2 Arterial > 100 mmHg (35-45); PO2 Arterial 79 mmHg (80-100)
[2023-10-31] MEDS ORDERED: Albuterol HFA INHALER 8 gm MDI INH PRN (21:09)
[2023-11-01 05:26] LABS: ABS Lymphocytes 0.4 10^3/uL (1.0-4.8); ABS Monocytes 0.6 10^3/uL (0.0-1.1); ABS Neutrophils 4.6 10^3/uL (1.5-7.6); Eosinophil % 0.1 %; Hematocrit 31.5 % (38-53); Hemoglobin 10.1 g/dL (13.2-16.3); Mean Corpuscular Hemoglobin 29.5 pg (27-33); Mean Corpuscular Volume 92.1 fL (80-97); Mean Platelet Volume 6.8 fL (7.5-11.2); Nucleated Red Blood Cells % 0.1 %/100WBC (0.0-0.8); Platelet Count 497 10^3/uL (150-450); Red Blood Count 3.42 10^6/uL (4.06-5.63); Red Cell Distribution Width 14.8 % (12-17); White Blood Count 5.6 10^3/uL (3.6-10.2)
[2023-11-01 06:14] LABS: Blood Urea Nitrogen 18 mg/dL (6-24); CO2 Carbon Dioxide > 45 mmol/L (22-32); Calcium 9.6 mg/dL (8.6-10.3); Chloride 88 mmol/L (101-111); Creatinine, Serum 0.41 mg/dL (0.67-1.17); Glucose 102 mg/dL (70-100); Potassium 4.5 mmol/L (3.5-5.0); Sodium 139 mmol/L (135-145); eGFR CKD-EPI 124.8 (>60)
[2023-11-01] MEDS: Enoxaparin 40 MG/0.4 ML SYR SUBCUT SCH (09:12)
[2023-11-01] MEDS: NF:BUDESONIDE/GLYCOPYR/FORMOTEROL MDI (NF) INH SCH (12:33)
[2023-11-02 04:30] LABS: ABS Eosinophils 0.4 10^3/uL (0.0-0.5); ABS Lymphocytes 0.9 10^3/uL (1.0-4.8); ABS Monocytes 1.1 10^3/uL (0.0-1.1); ABS Neutrophils 4.2 10^3/uL (1.5-7.6); ABS Nucleated RBC 0.01 10^3/ul; Eosinophil % 5.3 %; Hematocrit 28.6 % (38-53); Hemoglobin 9.3 g/dL (13.2-16.3); Lymphocyte % 13.6 %; Mean Corpuscular Hemoglobin 30.3 pg (27-33); Mean Corpuscular Hgb Conc 32.6 g/dL (31-36); Mean Corpuscular Volume 92.9 fL (80-97); Mean Platelet Volume 6.6 fL (7.5-11.2); Nucleated Red Blood Cells % 0.1 %/100WBC (0.0-0.8); Platelet Count 407 10^3/uL (150-450); Red Blood Count 3.08 10^6/uL (4.06-5.63); Red Cell Distribution Width 15.1 % (12-17); White Blood Count 6.7 10^3/uL (3.6-10.2)
[2023-11-02 05:09] LABS: Blood Urea Nitrogen 21 mg/dL (6-24); CO2 Carbon Dioxide > 45 mmol/L (22-32); Calcium 8.9 mg/dL (8.6-10.3); Chloride 87 mmol/L (101-111); Creatinine, Serum 0.39 mg/dL (0.67-1.17); Glucose 116 mg/dL (70-100); Potassium 4.4 mmol/L (3.5-5.0); Sodium 142 mmol/L (135-145); eGFR CKD-EPI 126.7 (>60)
[2023-11-02 05:37] LABS: PO2 Arterial 45 mmHg (80-100)
[2023-11-02 05:40] LABS: PCO2 Arterial 93 mmHg (35-45)
[2023-11-02] MEDS: Fluticasone NASAL SPRAY 50MCG 16 gm SPRAY BTL BOTH NARES SCH (10:57)
[2023-11-02] MEDS: PTO:BUDESONIDE/GLYCOPYR/FORMOTEROL MDI (NF) INH SCH (15:07)
[2023-11-03 05:36] LABS: ABS Basophils 0.1 10^3/uL (0.0-0.1); ABS Eosinophils 0.4 10^3/uL (0.0-0.5); ABS Neutrophils 3.7 10^3/uL (1.5-7.6); ABS Nucleated RBC 0.01 10^3/ul; Eosinophil % 6.2 %; Hematocrit 28.7 % (38-53); Hemoglobin 9.2 g/dL (13.2-16.3); Lymphocyte % 16.3 %; Mean Corpuscular Hemoglobin 29.8 pg (27-33); Mean Corpuscular Hgb Conc 32.2 g/dL (31-36); Mean Corpuscular Volume 92.4 fL (80-97); Mean Platelet Volume 6.7 fL (7.5-11.2); Nucleated Red Blood Cells % 0.1 %/100WBC (0.0-0.8); Platelet Count 396 10^3/uL (150-450); Red Cell Distribution Width 14.8 % (12-17); White Blood Count 6.2 10^3/uL (3.6-10.2)
[2023-11-03 06:20] LABS: Blood Urea Nitrogen 16 mg/dL (6-24); CO2 Carbon Dioxide > 45 mmol/L (22-32); Calcium 8.7 mg/dL (8.6-10.3); Chloride 86 mmol/L (101-111); Creatinine, Serum 0.32 mg/dL (0.67-1.17); Glucose 95 mg/dL (70-100); Potassium 4.7 mmol/L (3.5-5.0); Sodium 142 mmol/L (135-145); eGFR CKD-EPI 134.4 (>60)
[2023-11-03] MEDS ORDERED: Saline NASAL SPRAY 0.65% BTL BOTH NARES PRN (18:03)
[2023-11-04 04:54] LABS: ABS Eosinophils 0.4 10^3/uL (0.0-0.5); ABS Lymphocytes 0.9 10^3/uL (1.0-4.8); ABS Neutrophils 4.5 10^3/uL (1.5-7.6); Eosinophil % 5.4 %; Hematocrit 28.5 % (38-53); Hemoglobin 9.3 g/dL (13.2-16.3); Lymphocyte % 13.3 %; Mean Corpuscular Hemoglobin 30.2 pg (27-33); Mean Corpuscular Hgb Conc 32.7 g/dL (31-36); Mean Corpuscular Volume 92.4 fL (80-97); Mean Platelet Volume 6.5 fL (7.5-11.2); Platelet Count 399 10^3/uL (150-450); Red Blood Count 3.09 10^6/uL (4.06-5.63); Red Cell Distribution Width 14.5 % (12-17); White Blood Count 6.8 10^3/uL (3.6-10.2)
[2023-11-04 05:30] LABS: Blood Urea Nitrogen 12 mg/dL (6-24); CO2 Carbon Dioxide > 45 mmol/L (22-32); Chloride 84 mmol/L (101-111); Creatinine, Serum 0.39 mg/dL (0.67-1.17); Glucose 163 mg/dL (70-100); Magnesium 2.1 mg/dL (1.9-2.7); Potassium 4.6 mmol/L (3.5-5.0); Sodium 139 mmol/L (135-145); eGFR CKD-EPI 126.7 (>60)
[2023-11-04] MEDS: PTO:BUDESONIDE/GLYCOPYR/FORMOTEROL MDI (NF) INH SCH (11:26)
[2023-11-04] MEDS: Ondansetron 4 mg VIAL 2 MG/ML 2 ml VIAL IV ONE (18:01)
[2023-11-04] MEDS ORDERED: Morphine ORAL CONCENTRATE 5 MG/0.25 ML ORAL.SYRIN SL PRN (18:29)
[2023-11-05 12:51] VITALS: BP 130/59
== END 2023-11-05 13:15 | disposition home or self-care (01) | DRG 189 ==
LOC: EDHOLD 13:33 → ED 13:33 → SUATTDRO 21:08 → OBSVTOIN 21:08 → ICU 11-01 02:53
PROVIDERS: ADMIT Internal Medicine; ATTEND Internal Medicine

== ENCOUNTER 2023-11-14 22:57 | Inpatient (IN) ==
[2023-11-14 23:35] LABS: PO2 Arterial 90 mmHg (80-100)
[2023-11-14 23:39] LABS: PCO2 Arterial > 100 mmHg (35-45)
[2023-11-14 23:39] LABS: ABS Eosinophils 0.2 10^3/uL (0.0-0.5); ABS Lymphocytes 0.7 10^3/uL (1.0-4.8); ABS Monocytes 0.9 10^3/uL (0.0-1.1); ABS Neutrophils 7.4 10^3/uL (1.5-7.6); ABS Nucleated RBC 0.02 10^3/ul; Eosinophil % 2.2 %; Hematocrit 32.7 % (38-53); Hemoglobin 10.3 g/dL (13.2-16.3); Lymphocyte % 7.3 %; Mean Corpuscular Hgb Conc 31.6 g/dL (31-36); Mean Corpuscular Volume 94.7 fL (80-97); Mean Platelet Volume 6.6 fL (7.5-11.2); Nucleated Red Blood Cells % 0.2 %/100WBC (0.0-0.8); Platelet Count 450 10^3/uL (150-450); Red Blood Count 3.45 10^6/uL (4.06-5.63); Red Cell Distribution Width 14.4 % (12-17); White Blood Count 9.1 10^3/uL (3.6-10.2)
[2023-11-15 00:03] LABS: High Sens Troponin Baseline 8 pg/mL (<20)
[2023-11-15 00:36] LABS: ALT 8 U/L (7-52); AST 11 U/L (13-39); Albumin 3.6 g/dL (3.2-5.2); Albumin/Globulin Ratio 1.4 (1-3); Alkaline Phosphatase 117 U/L (35-149); Blood Urea Nitrogen 20 mg/dL (6-24); CO2 Carbon Dioxide > 45 mmol/L (22-32); Calcium 9.1 mg/dL (8.6-10.3); Chloride 89 mmol/L (101-111); Creatinine, Serum 0.34 mg/dL (0.67-1.17); Globulin 2.5 g/dL (2-4); Glucose 129 mg/dL (70-100); Potassium 4.5 mmol/L (3.5-5.0); Sodium 143 mmol/L (135-145); Total Bilirubin 0.2 mg/dL (0.2-1.0); Total Protein 6.1 g/dL (6.4-8.9)
[2023-11-15 00:55] LABS: PCO2 Arterial > 100 mmHg (35-45); PO2 Arterial 59 mmHg (80-100)
[2023-11-15 00:57] LABS: High Sensitivity Troponin 1 Hr < 3 pg/mL (<20)
[2023-11-15 02:22] LABS: PO2 Arterial 85 mmHg (80-100)
[2023-11-15 02:24] LABS: PCO2 Arterial > 100 mmHg (35-45)
[2023-11-15] MEDS ORDERED: Albuterol HFA INHALER 8 gm MDI INH PRN (05:35)
[2023-11-15] MEDS ORDERED: Albuterol/Ipratropium NEB.SOL (2.5/0.5 MG) 3 ML NEB.SOLN ONE (07:41)
[2023-11-15] MEDS ORDERED: Ondansetron 4 mg VIAL 2 MG/ML 2 ml VIAL IV PRN (08:41)
[2023-11-15] MEDS: BUDESONIDE/GLYCOPYR/FORMOTEROL MDI (NF) INH SCH (10:17)
[2023-11-15] MEDS: Fluticasone NASAL SPRAY 50MCG 16 gm SPRAY BTL BOTH NARES SCH (11:18)
[2023-11-15] MEDS: Albuterol/Ipratropium NEB.SOL (2.5/0.5 MG) 3 ML NEB.SOLN INH SCH (11:45)
[2023-11-15] MEDS ORDERED: Morphine 2 MG/ML SYRINGE IV PRN (16:53)
[2023-11-15] MEDS ORDERED: Albuterol/Ipratropium NEB.SOL (2.5/0.5 MG) 3 ML NEB.SOLN INH PRN (18:40)
[2023-11-16 10:05] VITALS: BP 145/74
== END 2023-11-18 18:32 | disposition expired | DRG 189 ==
LOC: ED 22:57 → EDHOLD 11-15 05:26 → SUATTDRO 11-15 05:26 → ICU 11-15 08:47 → MEDTELE 11-15 20:47
PROVIDERS: ADMIT Internal Medicine; ATTEND Internal Medicine